=== PATIENT | female | born 1965 | race Caucasian/White ===

== ENCOUNTER → 2016-11-05 | Outpatient (CLI) | payer BC ==
[2016-11-05 10:30] LABS: Anisocytosis Slight; Basophils % (A) 1 %; CH 21.4; CHCM 27.9; Eosinophils % (A) 0 %; HCT 31.9 % (34.0-46.0); HDW 3.65; HGB 9.1 gm/dL (11.4-16.0); Hypochromasia Marked; Luc # (Auto) 0.08; Luc % (Auto) 3; Lymphocytes # (A) 0.8 k/uL (1.0-4.8); Lymphocytes % (A) 26 %; MCH 21.9 pg (25.0-35.0); MCHC 28.6 g/dL (31.0-37.0); MCV 76.6 fL (80.0-100.0); Mean Platelet Volume 6.5; Microcytosis Slight; Monocytes # (A) 0.3 k/uL (0-1.0); Monocytes % (A) 8 %; Neutrophils % (A) 63 %; Poikilocytosis Slight; RBC 4.16 m/uL (3.80-5.40); RDW 17.2 % (11.5-15.5); WBC 3.2 k/uL (3.8-10.6); WBC (Perox) 3.24
== END | disposition home or self-care (01) ==
LOC: LABPAT 09:48
PROVIDERS: ATTEND Obstetrics & Gynecology
DX: Z01.812 Encounter for preprocedural laboratory examination (principal); N92.0 Excessive and frequent menstruation with regular cycle
CPT/HCPCS: 85025

== ENCOUNTER 2016-11-15 05:55 | Day surgery (SDC) | payer BC ==
[2016-11-09 13:10] VITALS: BMI 21.9
[~2016-11-15 05:55] MED LIST: DEXAMETHASONE SOD PHOSPHATE 10 MG/ML 1 ML VIAL IV ONE; LACTATED RINGERS 1,000 ML IV SCH; MIDAZOLAM 2 MG/2 ML VIAL IV PRN; ONDANSETRON 4 MG/2 ML VIAL IVP ONE; Pre Op ABX Message 1 EACH MISC MISCELLANE ONE
[2016-11-15] MEDS ORDERED: LIDOCAINE 1% 20 ML VIAL (10MG/ML) FOR IV START INTRADERMA ONE (06:53)
[2016-11-15] MEDS ORDERED: fentaNYL (PF) 50 MCG/ML 2 ML AMP ONE (06:58)
[2016-11-15] MEDS ORDERED: LIDOCAINE 1% INJ 10MG/ML (20 ML MDV) ONE (06:58)
[2016-11-15] MEDS ORDERED: SUCCINYLCHOLINE CHLORIDE 100 MG/5 ML SYR IV ONE (06:58)
[2016-11-15] MEDS ORDERED: MIDAZOLAM 2 MG/2 ML VIAL ONE (06:58)
[2016-11-15] MEDS ORDERED: KETOROLAC 30 MG/ML 1 ML VIAL ONE (06:58)
[2016-11-15] MEDS ORDERED: PROPOFOL 10 MG/ML 20 ML VIAL IV ONE (06:58)
--- NOTE | 2016-11-15 07:26 | P.OP ---
Date of Procedure: 11/15/16 Preoperative Diagnosis: Menorrhagia, anemia Postoperative Diagnosis: Pathology pending Procedure(s) Performed: Hysteroscopy, dilatation and curettage of the uterus Implants: Anesthesia: TERRANCEA Surgeon: Doris Arnold Estimated Blood Loss (ml): 15 IV fluids (ml): 600 Urine output (ml): 25 Pathology: other (Endocervical, and endometrial curettings.) Condition: stable Disposition: PACU Indications for Procedure: Operative Findings: Description of Procedure: Patient is brought to the operating suite where general anesthetic is administered. Intubation is difficult, the glide scope as needed. She is placed in the dorsolithotomy position. The cervix vagina and perineal bodies are all prepped and draped in the usual sterile fashion. The appropriate timeout is performed to assure proper patient and procedural identification. Antibiotics are not deemed necessary. Urine hCG is negative. Examination under anesthesia reveals an anteverted uterus, negative adnexa bilaterally. Speculum was placed into the vagina. The vaginal vault is very narrow. A right angle retractor is not able to be placed, the anterior lip of the cervix is grasped with a double-tooth tenaculum. Endocervical cervical curettings are obtained and sent to pathology under separate cover. The uterus then sounds to a depth of 8 cm in the anteverted position. The cervix was gently and systematically dilated using Hanks dilators. The hysteroscope was placed and the cavity is distended with sterile saline. Inspection of the cavity reveals a moderate amount of proliferative-type appearing tissue. A medium sharp curette is used and the tissue is removed and sent to pathology. A polyp forcep was introduced and no additional tissue is procured. Hysteroscope was once again placed, and the cavity is noted to be clear, with blood remaining. All instrumentation is now removed from the vagina. The cervix is clean and dry. Patient is brought back to the recovery room in very good condition with stable vital signs including blood pressure 111/52, pulse 77, 100% O2 saturation. Toradol is given prior to leaving the operative suite. Patient will follow-up in the office with me in 2 weeks.
[2016-11-15 07:50] VITALS: TEMP 98
[2016-11-15] MEDS ORDERED: LACTATED RINGERS 1,000 ML IV ONE (08:15)
[2016-11-15] MEDS: HYDROmorphone 1 MG/ML 1 ML SYRINGE IVP PRN ×2 (08:25→08:32)
[2016-11-15 09:03] VITALS: BP 121/67; PULSE 84; RESP 18
== END 2016-11-15 09:08 | disposition home or self-care (01) ==
LOC: OR 05:55
PROVIDERS: ATTEND Obstetrics & Gynecology
DX: N84.0 Polyp of corpus uteri (principal); N92.4 Excessive bleeding in the premenopausal period; D64.9 Anemia, unspecified; G89.29 Other chronic pain; K21.9 Gastro-esophageal reflux disease without esophagitis; Z87.11 Personal history of peptic ulcer disease; Z79.891 Long term (current) use of opiate analgesic; Z79.899 Other long term (current) drug therapy; Z88.2 Allergy status to sulfonamides; Z91.09 Other allergy status, other than to drugs and biological substances
CPT/HCPCS: 81025; 88305; 58558; J2250; J1100; J2405; J2001; J3010; J1885; J1170; J0330; J2704

== ENCOUNTER → 2020-09-11 | Outpatient (CLI) | payer BC ==
--- NOTE | 2020-09-11 09:23 | US ---
EXAMINATION TYPE: US venous doppler duplex LE BI DATE OF EXAM: 09/11/2020 9:08 AM COMPARISON: NONE CLINICAL HISTORY: . Bilateral LE swelling, skin redness/rash bilateral legs, MARY, f ibromyalgia SIDE PERFORMED: Bilateral TECHNIQUE: The lower extremity deep venous system is examined utilizing real time linear array sonog janeen with graded compression, doppler sonography and color-flow sonography. VESSELS IMAGED: Common Femoral Vein Deep Femoral Vein Greater Saphenous Vein * Femoral Vein Popliteal Vein Small Saphenous Vein * Proximal Calf Veins (* superficial vessels) Right Leg: Negative for DVT Left Leg: Negative for DVT Bilateral ankle edema channels are noted. Bilateral pulsatile venous signal is noted which suggests C HF. IMPRESSION: 1. No evidence of deep venous thrombosis in the bilateral lower extremity veins. 2. Bilateral ankle edema.
[2020-09-11 10:07] LABS: Basophils % (A) 1 %; Eosinophils % (A) 0 %; HCT 28.2 % (34.0-46.0); HGB 8.3 gm/dL (11.4-16.0); Hypochromasia Marked; Lymphocytes # (A) 0.7 k/uL (1.0-4.8); Lymphocytes % (A) 14 %; MCHC 29.5 g/dL (31.0-37.0); MCV 71.3 fL (80.0-100.0); Mean Platelet Volume 6.4; Microcytosis Moderate; Monocytes # (A) 0.2 k/uL (0-1.0); Monocytes % (A) 5 %; Neutrophils % (A) 79 %; Platelet Count 204 k/uL (150-450); RBC 3.96 m/uL (3.80-5.40); RDW 15.2 % (11.5-15.5); WBC 5.1 k/uL (3.8-10.6)
[2020-09-11 10:16] LABS: ALT 33 U/L (4-34); AST 30 U/L (14-36); African American GFR (CKD) >90 (>60 ml/min/1.73 sqM); Albumin 3.4 g/dL (3.5-5.0); Alkaline Phosphatase 66 U/L (38-126); Anion Gap 4 mmol/L; Blood Urea Nitrogen 14 mg/dL (7-17); C Reactive Protein 1.3 mg/dL (<1.0); Calcium 8.7 mg/dL (8.4-10.2); Carbon Dioxide 31 mmol/L (22-30); Chloride 101 mmol/L (98-107); Glucose 89 mg/dL (74-99); Non-African American GFR(CKD) >90 (>60 ml/min/1.73 sqM); Sodium 136 mmol/L (137-145); Total Bilirubin 0.2 mg/dL (0.2-1.3); Total Protein 5.6 g/dL (6.3-8.2); Uric Acid 4.5 mg/dL (3.7-7.4)
[2020-09-11 11:49] LABS: Erythrocyte Sedimentation Rate 14 mm/hr (0-20)
[2020-09-12 06:28] LABS: Folate, Serum 6.3 ng/mL
[2020-09-12 07:36] LABS: % Iron Saturation 4.49 (12.00-45.00); Ferritin 3.5 ng/mL (10.0-291.0); Iron 18 ug/dL (50-170); Rheumatoid Factor, Qnt 5 IU/mL (0-15); Total Iron Binding Capacity 401 ug/dL (228-460)
== END | disposition home or self-care (01) ==
LOC: RADUSWWP 08:29
PROVIDERS: ATTEND Family Medicine
DX: R60.0 Localized edema (principal); M79.7 Fibromyalgia
CPT/HCPCS: 36415; 80053; 82306; 82607; 82728; 82746; 83540; 83550; 83880; 84550; 85025; 85379; 85652; 86038; 86140; 86431; 93970

== ENCOUNTER → 2020-09-23 | Outpatient (CLI) | payer BC ==
--- NOTE | 2020-09-24 10:36 | ECHOF ---
Referral Reason:R06.00 Dyspnea on exertion R60.0 MEASUREMENTS -------- HEIGHT: 157.5 cm WEIGHT: 61.2 kg BP: RVIDd: 2.6 cm (< 3.3) IVSd: 0.9 cm (0.6 - 1.1) LVIDd: 3.3 cm (3.9 - 5.3) LVPWd: 0.9 cm (0.6 - 1.1) IVSs: 1.2 cm LVIDs: 2.3 cm LVPWs: 1.3 cm LAESV Index (A-L): 23.37 ml/m Ao Diam: 2.5 cm (2.0 - 3.7) AV Cusp: 2.1 cm (1.5 - 2.6) MV EXCURSION: 13.818 mm (> 18.000) MV EF SLOPE: 83 mm/s (70 - 150) EPSS: 0.3 cm MV E Eliseo: 1.03 m/s MV DecT: 198 ms MV A Eliseo: 1.12 m/s MV E/A Ratio: 0.92 RAP: 15.00 mmHg RVSP: 44.00 mmHg FINDINGS -------- Sinus rhythm. This was a technically adequate study. The left ventricular size is normal. Left ventricular wall thickness is normal. Overall left vent ricular systolic function is normal with, an EF between 55 - 60 %. The diastolic filling pattern is normal for the age of the patient 9.95. The right ventricle is normal in size. Normal LA size by volume 22+/-6 ml/m2. The right atrial size is normal. Interatrial and interventricular septum intact. The aortic valve is trileaflet, and appears structurally normal. No aortic stenosis or regurgitation. Mild mitral annular calcification present. Mild mitral regurgitation is present. The tricuspid valve appears structurally normal. Mild tricuspid regurgitation present. There is m ild pulmonary hypertension. The right ventricular systolic pressure, as measured by Doppler, is 44. 00mmHg. There is no pulmonic regurgitation present. The aortic root size is normal. The inferior vena cava is dilated with no significant inspiratory collapse which is consistent estima lennie right atrial pressure of >20 mmHg. There is no pericardial effusion. CONCLUSIONS -------- 1. Left ventricular wall thickness is normal. 2. Overall left ventricular systolic function is normal with, an EF between 55 - 60 %. 3. Normal LA size by volume 22+/-6 ml/m2. 4. The aortic valve is trileaflet, and appears structurally normal. No aortic stenosis or regurgitati on. 5. Mild mitral regurgitation is present. 6. Mild tricuspid regurgitation present. 7. There is mild pulmonary hypertension. 8. The inferior vena cava is dilated with no significant inspiratory collapse which is consistent est imated right atrial pressure of >20 mmHg. 9. There is no pericardial effusion. INFORMATION TECHNOLOGY INTERN: Kalani Adame RDCS
== END | disposition home or self-care (01) ==
LOC: RADECHMAIN 13:51
PROVIDERS: ATTEND Family Medicine
DX: I08.1 Rheumatic disorders of both mitral and tricuspid valves (principal); I27.20 Pulmonary hypertension, unspecified
CPT/HCPCS: 93306

== ENCOUNTER 2020-12-08 15:02 | Emergency (ER) | payer BC ==
[2020-12-08 15:09] VITALS: TEMP 98.4
[2020-12-08] MEDS ORDERED: SODIUM CHLORIDE 0.9% 1,000 ML IV STA (15:55)
[2020-12-08 16:30] VITALS: BP 149/84; PULSE 93; RESP 17
--- NOTE | 2020-12-08 16:49 | ED ---
Allergic Reaction HPI - General Chief complaint: Allergic Reaction Stated complaint: allergic reaction Time Seen by Provider: 12/08/20 15:39 Source: patient, RN notes reviewed Mode of arrival: wheelchair Limitations: no limitations - History of Present Illness Initial Comments: Patient is a 55-year-old female that presents to the emergency department co mplaining of ALLERGIC reaction while getting an iron infusion. She notes she was just in [facility] [place] where she noted that she started getting flushed and feeling off. She notes that the people in [facility] gave her 125 mg of Solu- Medrol, 50 mg of Benadryl and a 500 mL bolus of fluids. While sitting up in bed during exam and interview patient states that she is feeling much better than previous. She notes that she understands that she is a stay for observation. She denied any other issues or complaints at this time. She was otherwise a well-appearing 55-year-old female in no apparent distress or pain. She denied any chest pain shortness of breath headache nausea vomiting diarrhea constipation fever fatigue chills. - Related Data Home Medications Medication Instructions Recorded Confirmed HYDROcodone/APAP 10-325MG [[place] 1 tab PO BID 11/09/16 12/08/20 10-325] Omeprazole 40 mg PO DAILY 11/09/16 12/08/20 oxyCODONE-APAP 10-325MG [Percocet 1 tab PO TID 11/09/16 12/08/20 10-325 mg] predniSONE 10 mg PO DAILY 12/08/20 12/08/20 Allergies Allergy/AdvReac Type Severity Reaction Status Date / Time Iodine and Iodide Containing Allergy Dyspnea Verified 12/08/20 15:09 Produc Sulfa (Sulfonamide Allergy Rash/Hives Verified 12/08/20 15:09 Antibiotics) ferraheme Allergy Rapid Uncoded 12/08/20 15:09 Heart Rate Review of Systems ROS Statement: Those systems with pertinent positive or pertinent negative responses have been documented in the HPI. ROS Other: All systems not noted in ROS Statement are negative. Past Medical History Past Medical History: Fibromyalgia, GERD/Reflux Additional Past Medical History / Comment(s): sclerederma, IBS, low iron levels History of Any Multi-Drug Resistant Organisms: None Reported Past Surgical History: Section Additional Past Surgical History / Comment(s): back surgery Past Anesthesia/Blood Transfusion Reactions: No Reported Reaction Past Psychological History: No Psychological Hx Reported Smoking Status: Never smoker Past Alcohol Use History: None Reported Past Drug Use History: None Reported General Exam Limitations: no limitations General appearance: alert, in no apparent distress Head exam: Present: atraumatic, normocephalic, normal inspection Eye exam: Present: normal appearance, PERRL, EOMI. Absent: scleral icterus, conjunctival injection, periorbital swelling Neck exam: Present: normal inspection Respiratory exam: Present: normal lung sounds bilaterally. Absent: respiratory distress, wheezes, rales, rhonchi, stridor Cardiovascular Exam: Present: regular rate, normal rhythm, normal heart sounds. Absent: systolic murmur, diastolic murmur, rubs, gallop, clicks GI/Abdominal exam: Present: soft, normal bowel sounds. Absent: distended, tenderness, guarding, rebound, rigid Extremities exam: Present: normal inspection, full ROM, normal capillary refill. Absent: tenderness, pedal edema, joint swelling, calf tenderness Neurological exam: Present: alert, oriented X3 Psychiatric exam: Present: normal affect, normal mood Skin exam: Present: warm, dry, intact, normal color. Absent: rash Course Vital Signs 12/08/20 12/08/20 15:05 16:29 Temperature 98.4 F Pulse Rate 103 H 93 Respiratory 18 17 Rate Blood Pressure 100/75 149/84 O2 Sat by Pulse 100 99 Oximetry Medical Decision Making - Medical Decision Making 85-year-old female with an ALLERGIC reaction to iron infusion. Patient received 125 mg of Solu-Medrol, 50 mg Benadryl and a 500 mL bolus prior to arrival. 1 L normal saline ordered. Patient will be observed for approximately an hour. Upon reevaluation patient states that she feels much better like to go home. Case discussed with Dr. Damon, patient can discharge home. Disposition Clinical Impression: Allergic reaction Disposition: HOME SELF-CARE Condition: Stable Instructions (If sedation given, give patient instructions): General Allergic Reaction (ED) Additional Instructions: Please return to the Emergency Department if symptoms worsen or any other concerns. Follow-up with primary care in 1-2 days. Take Benadryl as the package directs Is patient prescribed a controlled substance at d/c from ED?: No Referrals: Chetan Britton MD [Primary Care Provider] - 1-2 days Time of Disposition: 17:03
== END 2020-12-08 17:44 | disposition home or self-care (01) ==
LOC: EC 15:02
DX: R68.89 Other general symptoms and signs (principal); T45.4X5A Adverse effect of iron and its compounds, initial encounter; K21.9 Gastro-esophageal reflux disease without esophagitis; Z91.041 Radiographic dye allergy status; Z88.2 Allergy status to sulfonamides
CPT/HCPCS: 96360; 99283

== ENCOUNTER → 2021-09-01 | Outpatient (CLI) | payer BC | END | disposition home or self-care (01) | LOC: LABWHC1 08:00 | PROVIDERS: ATTEND Family Medicine | DX: D50.9 Iron deficiency anemia, unspecified (principal) | CPT/HCPCS: 36415; 82728 ==

== ENCOUNTER → 2021-09-29 | Outpatient (CLI) | payer BC ==
--- NOTE | 2021-09-29 14:59 | US ---
IMPRESSION: LOWER EXTREMITY VENOUS INSUFFICIENCY CLINICAL HISTORY: I87.2 VENOUS INSUFFICIENCY (CHRONIC) (PERIPHERAL). Insufficiency study. No hx of DV T. Patient does not take blood thinners. SIDE PERFORMED: Bilateral 1) Color flow is present and patency is documented in the following vessels. No DVT or SVT is noted . Common Femoral Vein Deep Femoral Vein Femoral Vein Popliteal Vein Proximal Calf Veins Greater Saph Vein Upper Small Saph Vein 2) There is venous reflux noted at the following venous levels: There appears to be reflux within t he bilateral CFV. IMPRESSION: There is reflux within the bilateral common femoral veins.
== END | disposition home or self-care (01) ==
LOC: RADUSWWP 13:53
PROVIDERS: ATTEND Dermatology Clinical & Laboratory Dermatological Immunology
DX: I87.2 Venous insufficiency (chronic) (peripheral) (principal)
CPT/HCPCS: 93970

== ENCOUNTER → 2024-07-24 | Outpatient (CLI) | payer MEDICARE ==
[2024-07-24 15:54] LABS: Basophils # (A) 0.06 X 10*3/uL (0.00-0.10); Basophils % (A) 1.4 %; Eosinophils % (A) 4.8 %; HCT 40.6 % (37.2-46.3); HGB 12.1 g/dL (12.0-15.0); Lymphocytes # (A) 1.12 X 10*3/uL (0.90-5.00); Lymphocytes % (A) 27.1 %; MCH 24.4 pg (27.0-32.0); MCHC 29.8 g/dL (32.0-37.0); Mean Platelet Volume 9.8 FL (9.5-12.2); Monocytes % (A) 9.7 %; NRBC Per 100 WBC 0 X 10*3/uL (0.00-0.01); Neutrophils # (A) 2.35 X 10*3/uL (1.80-7.70); Neutrophils % (A) 56.8 %; Platelet Count 220 X 10*3/uL (140-440); RBC 4.95 X 10*6/uL (4.10-5.20); RDW 16.1 % (11.5-14.5); WBC 4.14 X 10*3/uL (4.50-10.00)
[2024-07-24 16:16] LABS: ALT 38 U/L (8-44); AST 33 U/L (13-35); Blood Urea Nitrogen 8.9 mg/dL (9.0-27.0); C Reactive Protein <0.30 mg/dL (0.00-0.80)
[2024-07-24 16:34] LABS: Erythrocyte Sedimentation Rate 6 mm/Hr (0-30)
== END | disposition home or self-care (01) ==
LOC: LABWHC1 11:04
PROVIDERS: ATTEND Internal Medicine Rheumatology
DX: M79.18 Myalgia, other site (principal); R76.8 Other specified abnormal immunological findings in serum; Z79.899 Other long term (current) drug therapy
CPT/HCPCS: 36415; 82565; 84450; 84460; 84520; 85025; 85652; 86140